=== PATIENT | male | born 1970 | race Caucasian/White ===

== ENCOUNTER 2019-03-23 19:43 | Emergency (ER) | payer OTHER ==
[2019-03-23] MEDS ORDERED: oxyCODONE 5 MG TABLET PO STA (20:01)
--- NOTE | 2019-03-23 20:03 | ED Physician Documentation ---
PD HPI UPPER EXT INJURY - Stated complaint Stated Complaint: LFT SHLDR INJ - Chief complaint Chief Complaint: Trauma Ext - History obtained from History obtained from: Patient - History of Present Illness Location: Left (He was up on a ladder getting a drone off the roof. He is not exactly sure why he came down, he thinks maybe his dog bumped the latter. He came down on his left side. He did not hit his head or lose consciousness. He remembers everything. This happened about half an hour ago. He complains of scapular and shoulder pain on the left with may be some high anterior rib pain. No other injuries. He is walking fine. No headache. No anticoagulants.) Review of Systems Ten Systems: 10 systems reviewed and negative Constitutional: reports: Reviewed and negative Cardiac: reports: Reviewed and negative Respiratory: reports: Reviewed and negative PD PAST MEDICAL HISTORY - Present Medications Home Medications: Ambulatory Orders Medication Instructions Recorded Confirmed Oxycodone HCl/Acetaminophen 1 - 2 each PO Q6H PRN #20 tablet 03/23/19 [Percocet 5-325 mg Tablet] - Allergies Allergies/Adverse Reactions: Allergies Allergy/AdvReac Type Severity Reaction Status Date / Time No Known Drug Allergies Allergy Verified 03/23/19 19:54 PD ED PE NORMAL - Vitals Vital signs reviewed: Yes - General General: Alert and oriented X 3, No acute distress - HEENT HEENT: PERRL, EOMI - Neck Neck: Supple, no meningeal sign, No bony TTP - Cardiac Cardiac: RRR, No murmur - Respiratory Respiratory: No respiratory distress, Clear bilaterally - Abdomen Abdomen: Normal bowel sounds, Soft, Non tender - Extremities Extremities: Other (Mildly tender over the left glenohumeral joint and clavicle. He is able to abduct about 90 degrees, not further. Mild tenderness over the left anterior upper ribs, midclavicular line. Breath sounds are equal. No other extremity tenderness.) - Neuro Neuro: Alert and oriented X 3, Normal speech Results - Vitals Vitals: Vital Signs - 24 hr 03/23/19 19:49 Temperature 36.5 C Heart Rate 66 Respiratory 18 Rate Blood Pressure 111/55 L O2 Saturation 98 Departure - Departure Disposition: 01 Home, Self Care Clinical Impression: Clavicular fracture, closed, shaft Qualifiers: Encounter type: initial encounter Fracture alignment: nondisplaced Laterality: left Qualified Code(s): S42.025A - Nondisplaced fracture of shaft of left clavicle, initial encounter for closed fracture Condition: Good Record reviewed to determine appropriate education?: Yes Instructions: ED Fx Clavicle Follow-Up: [facility] [Provider Group] - Within 3 Days Prescriptions: Oxycodone HCl/Acetaminophen [Percocet 5-325 mg Tablet] 1 - 2 each PO Q6H PRN #20 tablet PRN Reason: pain Comments: Follow-up with the orthopedic surgeons this week, call tomorrow for an appointment. Wear the sling most of the time for comfort until then. Return for new or worsening symptoms. Do not drink or drive while taking narcotic pain medication. Note that many narcotic pain relievers also contain Tylenol/acetaminophen. Please ensure that your total dose of acetaminophen from all sources does not exceed 3 g (3000 mg) per day. You may get constipated while on this medication. Take a stool softener such as Colace twice a day while you are on it. Also add an [id number] laxative such as senna or MiraLAX on any day that you do not have a bowel movement. If you received a narcotic pain medication or sedative while in the emergency department, do not drive for the next 24 hours. Forms: Activity restrictions
[2019-03-23] MEDS ORDERED: oxyCODONE/ACET 5/325 Prepack 4 PO STA (20:29)
[2019-03-23 20:35] VITALS: BP 146/90
--- NOTE | 2019-03-23 20:47 | XRAY Report ---
Reason: shoulder/rib inj/ fall Procedure Date: 03/23/2019 Accession Number: [id number] / [id number] Procedure: XR - Shoulder 3 View LT CPT Code: FULL RESULT: EXAM: LEFT SHOULDER RADIOGRAPHY EXAM DATE: 03/23/2019 08:18 PM. CLINICAL HISTORY: Shoulder/rib inj/ fall. COMPARISON: None. TECHNIQUE: 3 views. FINDINGS: Bones: Mid shaft mildly displaced left clavicle fracture is present with displacement of the fracture fragments up to 2-3 mm. Slight cephalad angulation noted. Degenerative spurring. Type I/II acromion. Joints: Normal alignment. No dislocation. Mild joint space narrowing. Soft tissues: Left lung is clear. IMPRESSION: 1. Midshaft left clavicle fracture. 2. Mild degenerative changes of the left shoulder. Normal alignment. [facility]
== END 2019-03-23 20:50 | disposition home or self-care (01) ==
LOC: ED 19:43
DX: S42.025A Nondisplaced fracture of shaft of left clavicle, initial encounter for closed fracture (principal); W11.XXXA Fall on and from ladder, initial encounter; Y93.89 Activity, other specified; Y92.008 Other place in unspecified non-institutional (private) residence as the place of occurrence of the external cause
CPT/HCPCS: 73030; 99283; 99284; A9270